=== PATIENT | male | born 1960 | race Caucasian/White ===

== ENCOUNTER 2025-05-27 07:56 | Emergency (ER) | payer OTHER, SELFPAY ==
[2025-05-27] VITALS (8 sets, daily range): BP systolic 113–163; BP diastolic 69–89; PULSE 51–76; RESP 12–21; TEMP 36.6; O2SAT 94–99
--- NOTE | 2025-05-27 07:57 | ED.ABDPAIN ---
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 Patient reports similar presentation to kidney stones that he had 15 years ago for which she was able to passed a kidney stone. His last bowel movement was earlier this morning was normal. He does have chills but denies any fevers body aches urinary complaints chest pain shortness of breath cough leg pain leg swelling. Other than what is stated 14 point review of system is negative. Related Data Previous Rx's ?Medication ?Instructions ?Recorded hydrocodone 5 mg-acetaminophen 325 1 tab PO Q4-6H PRN pain #20 tabs 05/27/25 mg tablet nitrofurantoin 100 mg PO Q12H 5 days #10 caps 05/27/25 monohydrate/macrocrystals 100 mg capsule (Macrobid) tamsulosin 0.4 mg capsule (Flomax) 0.4 mg PO DAILY #30 caps 05/27/25 Allergies Allergy/AdvReac Type Severity Reaction Status Date / Time No Known Drug Allergies Allergy Verified 05/27/25 09:35 Review of Systems Review of Systems ROS Unobtainable: All systems reviewed & are unremarkable except as noted in HPI and below Patient History Social History Smoking Status: Never smoker Exam Narrative Exam Narrative: GENERAL: [65] year old patient appears stated age. Well-developed patient, in mild distress. HEAD: Atraumatic. Normocephalic. EYES: Pupils equal round and reactive. Extraocular motions intact. No scleral icterus. No injection or drainage. ENT: Nose without bleeding, purulent drainage. Throat without erythema, tonsillar hypertrophy or exudate. Airway patent. NECK: Trachea midline. Non tender CARDIOVASCULAR: Regular rate and rhythm without murmurs, gallops, or rubs. RESPIRATORY: Clear to auscultation. Breath sounds equal bilaterally. No wheezes, rales, or rhonchi. GASTROINTESTINAL: Abdomen soft, non-tender, nondistended. EXTREMITIES: No edema or joint tenderness. BACK: Nontender without deformity or crepitance. No flank tenderness. NEURO: AOx3. SKIN: No rash or erythema of visible areas Initial Vital Signs Initial Vital Signs: Vital Signs Temperature 97.8 F 05/27/25 08:04 Pulse Rate 55 L 05/27/25 08:04 Respiratory Rate 19 05/27/25 08:04 Blood Pressure 163/89 H 05/27/25 08:04 Pulse Oximetry 98 05/27/25 08:04 Oxygen Delivery Method Room Air 05/27/25 08:04 Course Orders Ordered: ED Orders 05/27/25 08:07 EKG-12 Lead Stat 05/27/25 08:08 CT abdomen pelvis w con Stat 05/27/25 08:50 Complete Blood Count AUTO DIFF Stat Comprehensive Metabolic Panel Stat Lipase Stat 05/27/25 09:26 EKG-12 Lead Stat Ondansetron HCl (Ondansetron 4 Mg/2 Ml Inj) 4 mg IV NOW PRN PRN Reason: Nausea And Vomiting Last Admin: 05/27/25 09:10 Dose: 4 mg Documented By: Ondansetron HCl (Ondansetron 4 Mg Odt) 4 mg PO NOW PRN PRN Reason: Nausea And Vomiting Discontinued Medications Hydromorphone HCl (Hydromorphone 1 Mg/Ml Syringe) 1 mg IV NOW ONE Stop: 05/27/25 09:03 Last Admin: 05/27/25 09:10 Dose: 1 mg Documented By: MS Lactated Ringer's (Lactated Ringers) 1,000 mls @ 1,000 mls/hr IV BOLUS ONE Stop: 05/27/25 09:06 Last Admin: 05/27/25 08:43 Dose: 1,000 mls/hr Documented By: MS Ketorolac Tromethamine (Ketorolac 30 Mg/Ml Vial) 15 mg IV NOW ONE Stop: 05/27/25 09:03 Last Admin: 05/27/25 09:11 Dose: 15 mg Documented By: MS Vital Signs Vital signs: Vital Signs - 8 hr 05/27/25 08:04 Temperature 97.8 F Pulse Rate 55 L Respiratory Rate 19 Blood Pressure 163/89 H Pulse Oximetry 98 Oxygen Delivery Method Room Air MDM - Abdominal Pain Lab Data 05/27/25 08:50 05/27/25 08:50 Labs: Lab Results 05/27/25 Range/Units 08:50 WBC 9.9 (4.5-11.0) X10^3/uL RBC 5.38 (4.5-5.9) X10^6/uL Hgb 15.2 (13.5-17.5) g/dL Hct 45.7 (41-53) % MCV 84.9 (80-100) fL MCH 28.3 (26-34) PG MCHC 33.4 (30-36) % RDW 14.0 (11.6-14.8) % Plt Count 231 (150-400) X10^3/uL Neut % (Auto) 85.0 H (50-75) % Lymph % (Auto) 8.5 L (25-40) % Green % (Auto) 5.8 (3-14) % Eos % (Auto) 0.3 L (2-4) % Baso % (Auto) 0.4 (0-2) % Neut # (Auto) 8400 H (3434-0075) /uL Lymph # (Auto) 800 L (4830-5641) /uL Green # (Auto) 600 (0-900) /uL Eos # (Auto) 0 (0-450) /uL Baso # (Auto) 0 (0-100) /uL Sodium 137 (137-145) mmol/L Potassium 4.5 (3.4-5.1) mmol/L Chloride 106 (98-107) mmol/L Carbon Dioxide 23 (22-32) mmol/L BUN 19 (9-20) mg/dL Creatinine 1.04 (0.66-1.25) mg/dL Estimated GFR > 60 (>60) mL/min BUN/Creatinine Ratio 18.3 (6-22) Glucose 143 H (70-99) mg/dL Calcium 9.1 (8.4-10.2) mg/dL Total Bilirubin 0.7 (0.2-1.3) mg/dL AST 32 (17-59) IU/L ALT 33 (<50) IU/L Alkaline Phosphatase 34 L (38-126) U/L Total Protein 7.1 (6.3-8.2) g/dL Albumin 4.2 (3.5-5.0) g/dL Globulin 2.9 (1.7-4.1) g/dL Albumin/Globulin Ratio 1.4 (1.0-2.8) Lipase 102 (23-300) U/L ECG Data Interpretation: Sinus Marco A HR 53 PA 178 QRS [address]-t wave change No previous EKG to compare MDM Narrative Medical decision making narrative: All lab work, vital signs, nurse triage note, medication list, previous ER visits, and all imaging studies reviewed. WBC 9.9 Hg 15.2 platelet 231 sodium 137 potassium 4.5 chloride 106 CO2 23 BUN 19 creatinine 1.04 glucose 143 [address] lipase 102. [address] abdomen and pelvis showed obstructing 4 mm distal right ureteral stone visualized at the right VG UVJ junction with [id number] upstream hydro ureteral nephrosis. Mild right perinephric stranding. Recommend clinical and laboratory correlation to exclude possible concurrent infectious uropathy. UA shows +2 occult blood negative nitrite negative leukocyte Additional bilateral punctate renal stones measuring up to 4 mm in size. No left-sided hydro nephrosis. Normal appendix. Patient given fluids as Zofran Toradol Dilaudid morphine Flomax strainer and will be discharged on Macrobid Flomax [place] and strainer to go home on. Follow up with Urologist Discharge Plan Departure Patient Disposition: Home Clinical Impression: Kidney stone Instructions: DI for Kidney Stones Activity Restrictions/Additional Instructions: Return with new or worsening symptoms. Take your medicines as directed and keep hydrated. Follow up with urologist in [place] call their office for appointment on Thursday for 4mm Kidney stone at R UVJ. Prescriptions: New tamsulosin [Flomax] 0.4 mg capsule 0.4 mg PO DAILY Qty: 30 0RF hydrocodone-acetaminophen 5-325 mg tablet 1 tab PO Q4-6H PRN (Reason: pain) Qty: 20 0RF nitrofurantoin monohyd/m-cryst [Macrobid] 100 mg capsule 100 mg PO Q12H 5 Days Qty: 10 0RF Rx Instructions: must administer with a meal/food Stand Alone Forms: Patient Portal/API
--- NOTE | 2025-05-27 08:08 | DI.CT.S_ITS ---
PROCEDURE: CT ABDOMEN PELVIS W CON INDICATIONS: abd pain / hx of kidney stone TECHNIQUE: After the administration of intravenous contrast, axial sections acquired from the lung bases to the pubic symphysis. Coronal and sagittal reformats were performed. For radiation dose reduction, the following was used: automated exposure control, adjustment of mA and/or kV according to patient size. COMPARISON: None. FINDINGS: Image quality: Diagnostic. Lower Chest: No significant findings. ABDOMEN: Liver: No solid mass. There is diffuse hypoattenuation of the liver parenchyma relative to the spleen compatible with hepatic steatosis. Gallbladder: No radiopaque gallstones or wall thickening. Biliary ducts: No biliary dilation. Pancreas: No ductal dilation. Spleen: Size is within normal limits. Adrenal Glands: No adrenal nodules. Kidneys and Ureters: There is an obstructing 4 mm stone noted at the right ureterovesicular junction with mild-moderate upstream hydroureteronephrosis and associated perinephric stranding. Additional punctate renal stone seen on the right measuring up to 4 mm in size. Multiple tiny punctate nonobstructing left renal stones also noted. Largest measures approximately 4 mm. Left ureter is normal in course and caliber without ureteral stone. No left-sided hydronephrosis. A 4 cm anterior left renal cyst is also visualized. No solid mass. No complex renal cystic lesion which requires follow up. Stomach and Bowel: Normal colonic caliber, without significant wall thickening. No evidence for small bowel obstruction or associated inflammatory changes. Normal appendix. Peritoneum: No abnormal intraperitoneal fluid. No free air. Ventral Wall: There is a fat-containing umbilical hernia without acute inflammation. Abdominal Nodes: No retroperitoneal or mesenteric adenopathy by size criteria. Vessels: Aorta and inferior vena cava are normal in size. PELVIS: Pelvic Organs: Mild prostatomegaly. Bladder: No bladder wall thickening, accounting for underdistention. No urinary bladder stones seen. No significant perivesicular stranding. Pelvic Nodes: No enlarged lymph nodes. Miscellaneous: No inguinal hernias are seen. Bones: No aggressive osseous abnormality. Visualized osseous structures appear intact without acute fracture or focal destructive lesion. No acute compression fractures of the imaged spine. IMPRESSION: An obstructing 4 mm distal right ureteral stone visualized at the right ureterovesicular junction with mild-moderate upstream hydroureteronephrosis. Mild right perinephric stranding. Recommend clinical and laboratory correlation to exclude possible concurrent infectious uropathy. Additional bilateral punctate renal stones measuring up to 4 mm in size. No left-sided hydronephrosis. Normal appendix. Other chronic/non-acute findings as above. Dictated by: Ethan Abel M.D. on 05/27/2025 at 9:07 Approved by: Ethan Abel M.D. on 05/27/2025 at 9:13
--- NOTE | 2025-05-27 08:20 | EKG_ITS ---
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
[2025-05-27] MEDS: LACTATED RINGERS 1,000 ML 1000 ML IV (08:43)
[2025-05-27 08:59] LABS: Add Manual Diff / Slide Review NO; Hematocrit 45.7 % (41-53); Hemoglobin 15.2 g/dL (13.5-17.5); Lymphocytes Absolute Auto 800 /uL (1100-4500); Mean Corpuscular HGB Conc 33.4 % (30-36); Mean Corpuscular Hemoglobin 28.3 PG (26-34); Mean Corpuscular Volume 84.9 fL (80-100); Platelet Count 231 X10^3/uL (150-400)
[2025-05-27 09:10] LABS: Alanine Aminotransferase 33 IU/L (<50); Albumin 4.2 g/dL (3.5-5.0); Albumin Globulin Ratio 1.4 (1.0-2.8); Alkaline Phosphatase 34 U/L (38-126); Blood Urea Nitrogen 19 mg/dL (9-20); Calcium 9.1 mg/dL (8.4-10.2); Carbon Dioxide 23 mmol/L (22-32); Chloride 106 mmol/L (98-107); Estimated Glomerular Filt Rate > 60 mL/min (>60); Globulin 2.9 g/dL (1.7-4.1); Glucose 143 mg/dL (70-99); HEMOLYSIS < 15 (0-50); Lipase 102 U/L (23-300); Potassium 4.5 mmol/L (3.4-5.1); Sodium 137 mmol/L (137-145); Total Protein 7.1 g/dL (6.3-8.2)
[2025-05-27] MEDS: ONDANSETRON 4 MG/2 ML INJ IV (09:10)
[2025-05-27] MEDS: KETOROLAC 30 MG/ML VIAL 15 MG IV (09:11)
--- NOTE | 2025-05-27 09:29 | EKG_ITS ---
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
[2025-05-27] MEDS: MORPHINE 4 MG/ML INJ IV (09:42)
[2025-05-27] MEDS: cefTRIAXone 2,000 MG in SODIUM CHLORIDE 0.9% 100 ML 200 MG IV (09:42)
[2025-05-27] MEDS: TAMSULOSIN 0.4 MG CAPSULE PO (10:24)
== END 2025-05-27 11:34 | disposition home or self-care (01) ==
PROVIDERS: Emergency Provider Family Medicine
DX: N20.0 Calculus of kidney (principal)
CPT/HCPCS: 36415; 74177; 80053; 81003; 83690; 85025; 93005; 96365; 96375; 99284; J0696; J1171; J1885; J2272; J2405; J7050; J7120; Q9967